=== PATIENT | male | born 2000 | race Caucasian/White ===

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

== ENCOUNTER 2022-01-21 09:18 | Emergency (ER) | payer MEDICAID ==
[~2022-01-21] VITALS: Ht 177.8 cm; Wt 104.0 kg
[~2022-01-21 09:18] MED LIST changes: +DOXY-443 PO; -DOXY100C37 PO
[2022-01-21] MEDS ORDERED: ONDA4TAB6 PO (12:13)
[2022-01-21 12:17] VITALS: BP 136/73
== END 2022-01-21 12:21 | disposition home or self-care (01) ==
LOC: M ED 09:18
DX: S01.01XA Laceration without foreign body of scalp, initial encounter (principal); S06.0X9A Concussion with loss of consciousness of unspecified duration, initial encounter; Y92.099 Unspecified place in other non-institutional residence as the place of occurrence of the external cause; Y93.89 Activity, other specified; Y99.9 Unspecified external cause status; K21.9 Gastro-esophageal reflux disease without esophagitis; J45.909 Unspecified asthma, uncomplicated; Z88.0 Allergy status to penicillin; Z91.018 Allergy to other foods; Z91.02 Food additives allergy status; Z91.89 Other specified personal risk factors, not elsewhere classified

== ENCOUNTER 2022-09-03 19:15 | Emergency (ER) | payer OTHER ==
[~2022-09-03] VITALS: Ht 180.3 cm; Wt 95.5 kg
[~2022-09-03 19:15] MED LIST changes: +ONDA4TAB6 PO
[2022-09-03 23:14] VITALS: BP 120/80
== END 2022-09-03 23:15 | disposition home or self-care (01) ==
LOC: EDBD 19:15 → M ED 19:15
DX: S16.1XXA Strain of muscle, fascia and tendon at neck level, initial encounter (principal); S20.211A Contusion of right front wall of thorax, initial encounter; V43.52XA Car driver injured in collision with other type car in traffic accident, initial encounter; J45.909 Unspecified asthma, uncomplicated; K21.9 Gastro-esophageal reflux disease without esophagitis; Z88.0 Allergy status to penicillin; Z88.3 Allergy status to other anti-infective agents; Z91.018 Allergy to other foods; Z91.02 Food additives allergy status